=== PATIENT | female | born 2000 | race Asian ===

== ENCOUNTER → 2022-03-01 09:53 | Outpatient (CLI) | payer OTHER, SELFPAY ==
[2022-03-01 11:44] LABS: Add Manual Diff / Slide Review NO; Basophils Absolute Auto 100 /uL (0-100); Basophils Percent Auto 0.5 % (0-2); Eosinophils Absolute Auto 100 /uL (0-450); Eosinophils Percent Auto 1.3 % (2-4); Hematocrit 38.7 % (36-46); Lymphocytes Absolute Auto 2400 /uL (1100-4500); Lymphocytes Percent Auto 21.6 % (25-40); Mean Corpuscular HGB Conc 33.5 % (30-36); Mean Corpuscular Hemoglobin 33.8 PG (26-34); Mean Corpuscular Volume 100.9 fL (80-100); Monocytes Absolute Auto 600 /uL (0-900); Monocytes Percent Auto 5.4 % (3-14); Neutrophils Absolute Auto 8000 /uL (1500-7000); Neutrophils Percent Auto 71.2 % (50-75); Platelet Count 264 X10^3/uL (150-400); Red Blood Cell Count 3.83 X10^6/uL (4.0-5.2); Red Cell Distribution Width 12.9 % (11.6-14.8); White Blood Cell Count 11.2 X10^3/uL (4.5-11.0)
[2022-03-01 12:07] LABS: Appearance Urine UA CLEAR; Bilirubin Urine UA NEGATIVE (NEGATIVE); Color Urine UA YELLOW; Glucose Urine UA NEGATIVE (Negative); Ketones Urine UA NEGATIVE (NEGATIVE); Leukocyte Esterase Urine UA TRACE (NEGATIVE); Nitrite Urine UA NEGATIVE (Negative); Occult Blood Urine UA NEGATIVE (Negative); Protein Urine UA NEGATIVE (Negative); Specific Gravity Urine UA <=1.005 (1.000-1.035); Urobilinogen Urine UA 0.2 E.U./dL (0.2)
[2022-03-01 12:43] LABS: Bacteria Urine Few (2-10); RBC Urine None Seen (0-5/HPF); WBC Urine 0-1/HPF (0-5/HPF)
[2022-03-01 13:01] LABS: Hepatitis B Surface Antigen NEGATIVE s/c (NEGATIVE); Rubella Antibody IgG 9.1 IU/mL (>15)
[2022-03-01 13:20] LABS: HIV 1 & 2 Ab/Ag 4th Gen Combo NEGATIVE (NEGATIVE)
[2022-03-01 16:11] LABS: Hep C Virus Ab w/Reflex Quant NEGATIVE s/c (NEGATIVE)
[2022-03-02 07:56] LABS: RPR Screen Non Reactive (Non Reactive); Varicella IgG Antibody 347 index (Immune >165)
== END ==
PROVIDERS: Referring Provider Obstetrics & Gynecology; Visit Provider Obstetrics & Gynecology
DX: Z34.01 Encounter for supervision of normal first pregnancy, first trimester (principal)
CPT/HCPCS: 36415; 80055; 81003; 81015; 86787; 86803; 86850; 86900; 86901; 87086; 87389

== ENCOUNTER → 2022-04-03 14:16 | Outpatient (CLI) | payer OTHER, SELFPAY ==
[2022-04-05 22:07] LABS: AFP, Serum 62.1 ng/mL (.); Estriol, Free 2.15 ng/mL (.); Inhibin A, Dimeric 163.68 pg/mL (.); Inhibin A, MoM 0.85 (.); Maternal Ethnicity Other (.); Maternal Weight 108 lbs (.); Number of Fetuses No (.); OSBR Risk 1 IN 6704 (.); Results Report (.); Test Results *Screen Negative* (.); hCG, MoM 1.07 (.); hCG, Serum 46166 mIU/mL (.)
== END ==
PROVIDERS: Referring Provider Obstetrics & Gynecology; Visit Provider Obstetrics & Gynecology
DX: Z34.02 Encounter for supervision of normal first pregnancy, second trimester (principal); Z3A.17 17 weeks gestation of pregnancy
CPT/HCPCS: 36415; 82105; 82677; 84702; 86336

== ENCOUNTER → 2022-04-24 08:56 | Outpatient (CLI) | payer OTHER, SELFPAY ==
--- NOTE | 2022-04-24 08:58 | DI.US.S_ITS ---
PROCEDURE: US OB >= 14 WEEKS FETUS INDICATIONS: ANATOMY OUTSIDE/PRIOR DATING DATA: Last menstrual period (LMP): 12/03/2021. LMP-based estimated date of delivery (ESTELLA): 09/09/2022. First dating scan (date and location): Unknown. TECHNIQUE: Real-time scanning was performed of the fetus, with image documentation and biometric measurements. Endovaginal scanning: Now COMPARISON: [facility], , OB >= 14 WEEKS FETUS, 04/03/2022, 14:10. FINDINGS: General: A single living intrauterine gestation is present. Presentation: Variable Placenta: Placental position is posterior, without previa. Amniotic fluid index: 18 cm, normal range is 5-24 cm. Single deepest vertical pocket is 6.2 cm. heart rate: 133 beats per minute. Maternal cervical canal: 5.2 cm long. Normal lower limit is 2.5 cm. biometrics: Biparietal diameter: 4.7 cm, 20 weeks 2 days Head circumference: 17.6 cm, 20 weeks 1 day Abdominal circumference: 15 cm, 20 weeks 2 days Femur length: 3.3 cm, 20 weeks 3 days Clinically estimated gestational age: 20 weeks 2 days Composite gestational age from present scan: 20 weeks 2 days Estimated weight and percentile: 345 g, 46th percentile Anatomic survey: Neuro: Ventricles are non-dilated at less than 10 mm. Cisterna magna is normal at 3-11 mm. Cerebellum is normal in size and morphology. Nuchal skin fold: Normal at less than 6 mm between 14-21 weeks gestational age. Face: Nose and lips, facial profile are normal. Spine: No evidence for spina bifida. Heart: 4-chambered heart is present, with normal ventricular outflow tracts. Echogenic focus within the left ventricle. Diaphragm: Diaphragm is intact. Stomach: Left-sided stomach is present. Kidneys: No hydronephrosis. Normal is less than 5 mm in 2nd trimester, less than 7 mm in 3rd trimester. Cord: 3-vessel cord has orthotopic insertion. Bladder: Normal in size. Extremities: All 4 extremities identified. IMPRESSION: 1. Isolated intracardiac focus within the left ventricle. Consider aneuploidy screening with cell free DNA. Otherwise, unremarkable anatomy scan. We strive to produce accurate, complete, and clear reports of imaging services. To assist us in improving patient care, this report was composed using standard report templates and voice recognition software. Therefore, it may contain abnormal punctuation, insertions and/or omissions. Occasional wrong-word or sound-alike substitutions may occur. Though we review the report and make efforts to correct it, we do recommend that the report be read carefully in proper context to recognize any text inaccuracies. Dictated by: Don Ramirez M.D. on 04/24/2022 at 13:44 Approved by: Don Ramirez M.D. on 04/24/2022 at 13:51
== END ==
PROVIDERS: Referring Provider Obstetrics & Gynecology; Visit Provider Obstetrics & Gynecology
DX: Z3A.20 20 weeks gestation of pregnancy; Z34.02 Encounter for supervision of normal first pregnancy, second trimester
CPT/HCPCS: 76811

== ENCOUNTER → 2022-06-03 14:33 | Outpatient (CLI) | payer OTHER, SELFPAY ==
[2022-06-03 16:17] LABS: Hematocrit 33.7 % (36-46); Hemoglobin 11.7 g/dL (12.0-16.0)
[2022-06-03 16:36] LABS: GTT (PREG) 1 Hour PP 50gm Dose 121 mg/dL (76-139)
== END ==
PROVIDERS: Referring Provider Obstetrics & Gynecology; Visit Provider Obstetrics & Gynecology
DX: Z34.02 Encounter for supervision of normal first pregnancy, second trimester; Z3A.26 26 weeks gestation of pregnancy
CPT/HCPCS: 36415; 82950; 85014; 85018

== ENCOUNTER → 2022-08-21 13:46 | Outpatient (CLI) | payer OTHER, SELFPAY ==
[2022-08-22 11:25] LABS: Strep Grp B PCR POS for Grp B Strep
== END ==
PROVIDERS: Visit Provider Obstetrics & Gynecology
DX: Z34.03 Encounter for supervision of normal first pregnancy, third trimester (principal); Z3A.37 37 weeks gestation of pregnancy
CPT/HCPCS: 87653

== ENCOUNTER 2022-08-28 16:09 | Outpatient (CLI) | payer OTHER, SELFPAY ==
[2022-08-28 17:09] LABS: Add Manual Diff / Slide Review NO; Basophils Absolute Auto 100 /uL (0-100); Basophils Percent Auto 0.9 % (0-2); Eosinophils Absolute Auto 200 /uL (0-450); Eosinophils Percent Auto 1.4 % (2-4); Hematocrit 37.9 % (36-46); Hemoglobin 12.8 g/dL (12.0-16.0); Lymphocytes Absolute Auto 2200 /uL (1100-4500); Lymphocytes Percent Auto 19.7 % (25-40); Mean Corpuscular HGB Conc 33.6 % (30-36); Mean Corpuscular Hemoglobin 33.7 PG (26-34); Mean Corpuscular Volume 100.3 fL (80-100); Monocytes Absolute Auto 900 /uL (0-900); Monocytes Percent Auto 8.4 % (3-14); Neutrophils Absolute Auto 7800 /uL (1500-7000); Neutrophils Percent Auto 69.6 % (50-75); Platelet Count 331 X10^3/uL (150-400); Red Blood Cell Count 3.78 X10^6/uL (4.0-5.2); Red Cell Distribution Width 14.5 % (11.6-14.8); White Blood Cell Count 11.2 X10^3/uL (4.5-11.0)
[2022-08-28 17:23] LABS: Aspartate Aminotransferase 23 IU/L (14-36); BUN Creatinine Ratio 18.2 (6-22); Blood Urea Nitrogen 8 mg/dL (7-17); Estimated Glomerular Filt Rate > 60 mL/min (>60); Uric Acid 2.5 mg/dL (2.5-6.2)
== END 2022-08-28 17:05 | disposition home or self-care (01) ==
LOC: LABOR 17:01 → OB 09-02 07:34
PROVIDERS: Referring Provider Obstetrics & Gynecology; Visit Provider Obstetrics & Gynecology
DX: O16.3 Unspecified maternal hypertension, third trimester (principal); Z3A.38 38 weeks gestation of pregnancy
CPT/HCPCS: 59025; 84450; 84550; 85025; G0378; G0379

== ENCOUNTER 2022-09-05 01:49 | Inpatient (IN) | payer OTHER, SELFPAY ==
[2022-09-05] MEDS: LACTATED RINGERS 1,000 ML 100 ML IV ×2 (02:46→09:22)
[2022-09-05 03:01] LABS: Add Manual Diff / Slide Review NO; Basophils Absolute Auto 100 /uL (0-100); Basophils Percent Auto 0.5 % (0-2); Eosinophils Absolute Auto 200 /uL (0-450); Eosinophils Percent Auto 1.1 % (2-4); Hematocrit 39.8 % (36-46); Hemoglobin 13.5 g/dL (12.0-16.0); Lymphocytes Absolute Auto 2800 /uL (1100-4500); Lymphocytes Percent Auto 18.3 % (25-40); Monocytes Absolute Auto 1100 /uL (0-900); Monocytes Percent Auto 7.1 % (3-14); Neutrophils Absolute Auto 11300 /uL (1500-7000); Platelet Count 326 X10^3/uL (150-400); Red Blood Cell Count 3.98 X10^6/uL (4.0-5.2); Red Cell Distribution Width 14.9 % (11.6-14.8); White Blood Cell Count 15.5 X10^3/uL (4.5-11.0)
[2022-09-05 03:26] LABS: Aspartate Aminotransferase 21 IU/L (14-36); BUN Creatinine Ratio 17.5 (6-22); Blood Urea Nitrogen 7 mg/dL (7-17); Estimated Glomerular Filt Rate > 60 mL/min (>60)
[2022-09-05 04:16] VITALS: BP 119/71
[2022-09-05] MEDS: AMPICILLIN 2,000 MG in SODIUM CHLORIDE 0.9% 100 ML 200 MG IV (05:02)
--- NOTE | 2022-09-05 05:53 | P.HPOB_ITS ---
OB HPI Date/Time Date of admission: 09/05/22 Date Patient Seen: 09/05/22 Time Patient Seen: 05:53 History of Present Condition Chief complaint: Labor ESTELLA Calculator Estimated Delivery Date Method Current WG Current Estimate 09/09/22 LMP (Certain) 39w 3d Other Estimates 09/09/22 Ultrasound #1 39w 3d Estimated Gestational Age (weeks): 39+3 : 1 Para: 0 care: good care, initiated at week # (9), number of visits (12) and pounds weight gain (28) Dating criteria OB: LMP confirmed by 1st trimester US Ultrasounds: normal 1st trimester US and normal mid trimester US Obstetrical complications: none Medical complications OB: none Indications Indication for induction OB: gestational HTN/pre-eclampsia Preadmission Labs Last OB Lab Results: Blood Type B Positive 09/05/22 02:30 Antibody Screen Negative 09/05/22 02:30 Hematocrit 39.8 % (36-46) 09/05/22 02:30 Hemoglobin 13.5 g/dL (12.0-16.0) 09/05/22 02:30 Hepatitis B Surface Antigen Negative s/c (NEGATIVE) 03/01/22 10 :01 Hepatitis C Antibody Negative s/c (NEGATIVE) 03/01/22 10:01 Rubella Antibody 9.1 IU/mL (>15) L 03/01/22 10:01 Varicella-Zoster IgG Antibody 347 index (Immune >165) 03/01/22 10:01 Glucose 1 Hour 121 mg/dL (76-139) 06/03/22 14:36 Group B Streptococcus (PCR) Pos for grp b strep H 08/21/22 13:4 6 -: Chlamydia screen: negative, Gonorrhea screen: negative and Urine: negative -: PAP smear: Normal Genetic Screens: Quad screen: Normal External Labs -: Urine: negative Evaluation Evaluation Baseline heart rate: 135 Variability: Moderate (11-25) monitor accelerations: Present Monitor Decelerations: Early and Variable Contraction Frequency (minutes): 4 Uterine Contraction Intensity: Strong/Firm Dilation (cm): 7 Effacement (%): 100 station: 0 Position of cervix: anterior Consistency: soft PFSH Medical History (Updated 09/04/22 @ 09:11 by Rosario Nogueira MD) Seasonal allergies Surgical History (Updated 11/02/22 @ 08:48 by Martha Wise RN) No pertinent past surgical history Family History (Updated 01/23/22 @ 22:09 by Iliana Schultz) Mother Diabetes mellitus Hypertension History of multiple miscarriages Hyperlipidemia Father Hypertension Diabetes mellitus Liver cancer Grandmother Kidney failure Hyperlipidemia Hypertension Grandfather Kidney failure Social History marital status: number of children: 0 household members: spouse lives independently: Yes [facility]) pets and animals: Yes (1 dog, aware of toxo precautions) education level: high school occupational status: employed 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; 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 ) special brittni needs: No travel history: recent (domestic only) seatbelt use: always water heater temp set < 120 deg: Yes working smoke detector in home: Yes fire extinguisher in home: Yes carbon monox detector in home: Yes firearms in home: Yes firearms unloaded and locked: Yes do you feel safe at home: Yes Smoking Status: Never smoker second hand exposure: No alcohol intake: former (0-1/week prior to ) substance use type: does not use during the past year weight has: remained stable well-balanced diet: daily or most days daily servings fruits/ve-4 caffeine: Yes (aware of 200mg limit) Type(s) of exercise: yoga Meds Home Medications and Allergies Home Medications Medication Instructions Recorded Confirmed Type omega-3 fatty acids-fish oil 360 1 cap PO DAILY 01/16/22 09/04/22 History mg-1,200 mg capsule (Fish Oil) prenat.vits,chase,ror-[id number] 1 tab PO DAILY 01/16/22 09/04/22 History Allergies Allergy/AdvReac Type Severity Reaction Status Date / Time No Known Drug Allergies Allergy Unverified 09/04/22 08:12 OB Exam Narrative Exam Narrative: Generally: Patient standing at side of bed, uncomfortable with contractions Lungs: Clear to auscultation bilaterally Cardiovascular: Regular rate and rhythm Fundal height: 38 cm Estimated weight: 7 lb Extremities: No edema Objective Labs 09/05/22 02:30 09/05/22 03:04 Labs: Laboratory Results - last 24 hr 09/05/22 09/05/22 09/05/22 02:30 02:30 03:04 WBC 15.5 H RBC 3.98 L Hgb 13.5 Hct 39.8 MCV 100.0 MCH 34.0 MCHC 34.0 RDW 14.9 H Plt Count 326 Neut % (Auto) 73.0 Lymph % (Auto) 18.3 L [place] % (Auto) 7.1 Eos % (Auto) 1.1 L Baso % (Auto) 0.5 Neut # (Auto) 83614 H Lymph # (Auto) 2800 [place] # (Auto) 1100 H Eos # (Auto) 200 Baso # (Auto) 100 BUN 7 Creatinine 0.40 L Estimated GFR > 60 BUN/Creatinine Ratio 17.5 Uric Acid 3.0 AST 21 Blood Type B Positive Antibody Screen Negative Assessment and Plan Assessment and Plan Assessment and Plan narrative: Assessment: 22-year-old 1 para 0 at 39-,3/7 weeks gestation in active labor Desires epidural GBS positive Plan: Fentanyl until anesthesia available Expectant management to spontaneous vaginal delivery GBS prophylaxis Time Spent with Patient Total time spent with greater than 50% in coordination of care (as documented) at patient's floor/unit and/or counseling patient:: 15-24 minutes
[2022-09-05] MEDS: fentaNYL 100 MCG/2 ML INJ 50 MCG IV (05:55)
--- NOTE | 2022-09-05 08:06 | PM.OBPNLAB ---
Date/Time Date Patient Seen: 09/05/22 Time Patient Seen: 08:06 Pain Control Pain control: epidural Pelvic Exam Dilation (cm): 8 Effacement (%): 100 station: 0 Amniotic membrane status: Bulging Contractions Contractions on admission: regular Monitor mode: External Contraction frequency (min): 3 Contraction duration (min): 1 Contraction pattern: Regular Contraction intensity: Strong/Firm Status status: Category ll Heart Rate Baseline: 135 Monitor Accelerations: Present Monitor Decelerations: Variable Monitor Variability: Moderate Assessment and Plan Assessment: active labor Comments: Plan: Artificial rupture of membranes with copious clear amniotic fluid scalp electrode placed due to noncontinuous tracing Position changes
[2022-09-05] MEDS: AMPICILLIN 1,000 MG in SODIUM CHLORIDE 0.9% 100 ML 200 MG IV (09:21)
--- NOTE | 2022-09-05 12:16 | PM.OBPNLAB ---
Date/Time Date Patient Seen: 09/05/22 Time Patient Seen: 12:17 Pain Control Pain control: epidural Pelvic Exam Dilation (cm): 10 Effacement (%): 100 station: 0 Amniotic membrane status: Ruptured Contractions Monitor mode: External Contraction frequency (min): 5 Contraction duration (min): 1 Contraction pattern: Regular Contraction intensity: Strong/Firm Status status: Category ll Heart Rate Baseline: 140 Monitor Accelerations: Present Monitor Decelerations: Early and Variable (Deep, with pushing) Monitor Variability: Moderate Assessment and Plan Assessment: active labor Comments: Assessment: 22-year-old 1 para 0 at 39-,3/7 weeks gestation with intolerance of second stage of labor Recurrent, deep variable decelerations with pushing Not a candidate for an operative delivery Plan: Primary low-transverse section The risks, benefits, and alternatives to the procedure were explained to the patient. The risks including bleeding, infection, injury to the bowel, bladder, or ureters. She understands these risks and agrees to proceed. A full par Q was held and consent form was signed.
--- NOTE | 2022-09-05 12:18 | PM.PREOP ---
Pre-operative Note COVID-19 Criteria for continued procedure: Non-surgical alternatives not available or appropriate per current SOC Interval Note History & Physical reviewed/Exam performed by Physician: Yes Changes to H&P: No H&P completed within 30 days and has changed as indicated here:: 08/05/22
[2022-09-05] MEDS: CEFAZOLIN 2 GM/100 ML PREMIX 100 ML IV (12:34)
[2022-09-05] MEDS: AZITHROMYCIN 500 MG in DEXTROSE 5% IN WATER 250 ML 250 MG IV (12:34)
--- NOTE | 2022-09-05 12:59 | SUR.OPER ---
Supine on padded OR bed, head on pillow, arms secured on padded arm boards at <90 degrees abduction, legs uncrossed, safety belt at thigh, tape over blanket over lower legs.
[2022-09-05 13:39] VITALS: BP 90/30; PULSE 87; RESP 20; TEMP 36.3; O2SAT 97
[2022-09-05 13:45] VITALS: BP 70/26; PULSE 111; RESP 14; O2SAT 99
--- NOTE | 2022-09-05 13:47 | PM.OBCS.1 ---
Operative Date/Time/Diagnoses Date of procedure: 09/05/22 Time of procedure: 13:47 Pre-op diagnosis: intolerance of labor Non reassuring FHR tracing Post-op diagnosis: same Procedure & Clinicians Procedure: Primary low-transverse section Same procedure as scheduled: Yes Indications: Nonreassuring heart rate tracing Surgeon: Rosario Nogueira Click Yes if Unassisted: No Eye Physician: Sammie Morrow Reason for Eye Physician: The delinquent tax collection assistant was necessary to retract upon entry into the abdomen and uterus. She assisted with delivery of the with fundal pressure. She assisted with closure with retraction, clipping of suture, and closure of the contralateral fascia. Anesthesia Type: Epidural (with Duramorph) Operative Notes Findings: Live male infant in the direct occiput posterior presentation Normal uterus, tubes, and ovaries Cord pH 7.29 Closure Type: primary Specimen(s): cord blood, cord pH and placenta Intraoperative meds administered: Duramorph, Ketorolac and Pitocin Applied: Catheter (to continuous drainage) Estimated Blood Loss (mL): 350 Blood products transfused: none Procedure in detail: Informed consent was obtained. The patient was taken to the operating room where she was then placed in the dorsal supine position with a leftward tilt. The 's head was elevated with a sterile glove from below. heart tones were found to be less than 100. She was prepped and draped in the usual sterile fashion. A timeout was performed. A Pfannenstiel skin incision was made 2 fingerbreadths above the pubic symphysis and carried through to the underlying layer fascia. The fascia was nicked in the midline, and the incision extended bilaterally with the Navarrete scissors. The superior aspect of the fascial incision was grasped with a Cecile clamps, elevated, and the underlying rectus muscles dissected off sharply and bluntly. Attention was then turned to the inferior aspect of this incision which in a similar fashion was grasped with a Cecile clamps, elevated, and the underlying rectus muscles dissected off sharply and bluntly. The rectus muscles were in the midline. The peritoneum was identified, grasped between 2 hemostats, and entered sharply with the Metzenbaum scissors. This incision was extended superiorly and inferiorly with good visualization of the bladder. The bladder blade was inserted. The vesicouterine peritoneum was identified, grasped with the pickup, and entered sharply with the Metzenbaum scissors. This incision was extended bilaterally, and the bladder flap was created digitally. The bladder blade was reinserted. The lower uterine segment was incised in a transverse fashion with the scalpel. Upon entering the amniotic sac there was a small amount of clear amniotic fluid. The was found to be in the direct occiput posterior presentation. The head was delivered without difficulty. The nose and mouth were suctioned with bulb suction. The remainder of the body delivered without difficulty. The was wrapped in warm blankets. The cord was double clamped and cut after 1 minute. The was handed off to waiting RN and RT. a piece of cord for cord pH was obtained. Cord bloods were obtained. The placenta was delivered by expression. The uterus was cleared of all clots and debris. The uterine incision was repaired with #1 chromic in a running interlocking fashion, and a second layer the same suture was used for an imbricating layer. Hemostasis was achieved. The tubes and ovaries were examined and were found to be normal. The gutters were cleared of all clots and debris. The bladder flap was reapproximated using 2-0 Vicryl in a running fashion. The parietal peritoneum was closed using 2-0 Vicryl in a running fashion. The fascia was reapproximated using 0 Vicryl in a running fashion. The subcutaneous layer was copiously irrigated with warm normal saline. 5 simple interrupted sutures of 3-0 Vicryl were placed to reapproximate the subcutaneous layer. The skin was closed with 4-0 Monocryl in a subcuticular fashion. Steri-Strips were placed. An Aquacel dressing was placed. The uterus was expressed of a small amount of old blood. Sponge, lap, and instrument counts were correct x-2. The patient tolerated the procedure well, and was taken to PACU in stable condition. Complications: none [place] Baby 1: Infant Gender: Male Presentation: vertex Position: Occiput Posterior Placental Delivery Description: Expressed Cord Vessel Description: 3 Vessels and Clamped/Cut (after one minute) score (1 min): 9 score (5 min): 9 weight: 6 lb 9 oz Post-operative Condition: stable Disposition: PACU Aftercare: routine postop
[2022-09-05 13:50] VITALS: BP 95/34; PULSE 99; RESP 14; O2SAT 98
[2022-09-05 13:55] VITALS: BP 104/37; PULSE 100; RESP 12; O2SAT 100
[2022-09-05] MEDS: OXYTOCIN 10 UNIT/ML VIAL IM (14:14)
[2022-09-05] MEDS: ACETAMINOPHEN 325 MG TABLET 650 MG PO ×2 (17:31→23:41)
--- NOTE | 2022-09-05 17:32 | PM.AN.REGBLK ---
Regional Block Pre-procedure Labs: Hct 39.8 % (36-46) 09/05/22 02:30 Plt Count 326 X10^3/uL (150-400) 09/05/22 02:30 Medications: Current Medications Generic Name Dose Route Start Last Admin Trade Name Rachelle PRN Reason Stop Dose Admin Acetaminophen 650 mg 09/05/22 14:13 Acetaminophen 325 Mg Tablet PO Q6H ANGELI Carboprost Tromethamine 250 mcg 09/05/22 14:13 Carboprost 250 Mcg/Ml Ampul IM Q90M PRN Bleeding Docusate Sodium 100 mg 09/06/22 09:00 Docusate 100 Mg Capsule PO DAILY ANGELI Emollient Ointment 1 applic 09/05/22 14:13 Lanolin Oint 7 Gm TOP PRN PRN Oxytocin/Lactated Ringer's 30 unit in 500 mls @ 200 mls/hr 09/05/22 14:13 Oxytocin Premix IV NOW PRN Bleeding Protocol Tranexamic Acid 1,000 mg/ 100 mls @ 200 mls/hr 09/05/22 14:13 Sodium Chloride IV NOW PRN Bleeding Ibuprofen 600 mg 09/06/22 13:45 Ibuprofen 600 Mg Tablet PO Q6H [facility] Ketorolac Tromethamine 30 mg 09/05/22 14:13 Ketorolac 30 Mg/Ml Vial IV 09/06/22 08:14 Q6H ANGELI Methylergonovine Maleate 0.2 mg 09/05/22 14:13 Methylergonovine 0.2 Mg/Ml Vial IM NOW PRN Bleeding Methylergonovine Maleate 0.2 mg 09/05/22 14:13 Methylergonovine 0.2 Mg Tablet PO Q6H PRN Bleeding Misoprostol 400 mcg 09/05/22 14:13 Misoprostol 200 Mcg Tablet SL NOW PRN Bleeding Misoprostol 800 mcg 09/05/22 14:13 Misoprostol [address] NOW PRN Bleeding Naloxone HCl 0.2 mg 09/05/22 14:13 Naloxone 0.4 Mg/Ml Vial IV Q2MIN PRN Opiate Reversal Ondansetron HCl 4 mg 09/05/22 14:13 Ondansetron 4 Mg/2 Ml Inj IV Q6H PRN Nausea And Vomiting Oxytocin 10 unit 09/05/22 14:13 Oxytocin 10 Unit/Ml Vial IM NOW PRN Bleeding Vit/Calcium/Iron/Folic Ac 1 tab 09/06/22 09:00 Vit,Calc/Iron/Folic 1 Tablet PO DAILY ANGELI Rho Immune Globulin 1,500 unit 09/05/22 14:13 Rho(D) Immune Globulin 1,500 Unit Syringe IM NOW PRN Mom Rh neg, Infant Rh pos Allergies: Allergies Allergy/AdvReac Type Severity Reaction Status Date / Time No Known Drug Allergies Allergy Unverified 09/04/22 08:12
[2022-09-05] MEDS: KETOROLAC 30 MG/ML VIAL IV (20:10)
[2022-09-05] MEDS: LANOLIN OINT 7 GM 1 APPLIC TOP (20:16)
[2022-09-06] MEDS: KETOROLAC 30 MG/ML VIAL IV ×2 (02:06→08:58)
[2022-09-06] MEDS: ACETAMINOPHEN 325 MG TABLET 650 MG PO ×3 (05:23→23:17)
[2022-09-06 06:53] LABS: Add Manual Diff / Slide Review NO; Basophils Absolute Auto 100 /uL (0-100); Basophils Percent Auto 0.3 % (0-2); Eosinophils Absolute Auto 0 /uL (0-450); Eosinophils Percent Auto 0.2 % (2-4); Hematocrit 33.4 % (36-46); Lymphocytes Absolute Auto 2300 /uL (1100-4500); Lymphocytes Percent Auto 12.2 % (25-40); Mean Corpuscular HGB Conc 32.9 % (30-36); Mean Corpuscular Hemoglobin 33.5 PG (26-34); Mean Corpuscular Volume 101.9 fL (80-100); Monocytes Absolute Auto 1500 /uL (0-900); Monocytes Percent Auto 8.2 % (3-14); Neutrophils Absolute Auto 14800 /uL (1500-7000); Neutrophils Percent Auto 79.1 % (50-75); Platelet Count 267 X10^3/uL (150-400); Red Blood Cell Count 3.28 X10^6/uL (4.0-5.2); Red Cell Distribution Width 14.9 % (11.6-14.8); White Blood Cell Count 18.8 X10^3/uL (4.5-11.0)
[2022-09-06] MEDS: DOCUSATE 100 MG CAPSULE PO (08:57)
[2022-09-06] MEDS: PRENATAL VIT,CALC/IRON/FOLIC 1 TABLET 1 TAB PO (08:58)
--- NOTE | 2022-09-06 16:09 | P.PNOB_ITS ---
Subjective - OB Subjective Patient comments: no complaints, pain well controlled and tolerating diet baby status: doing well feeding status: exclusively breast feeding Date Patient Seen: 09/06/22 Time Patient Seen: 09:15 Interval history: Postop day # 1 status post emergent primary low-transverse section due to intolerance of labor The catheter is out and the patient has voided. Good pain management. No nausea or vomiting. going well. Exam Vital Signs (past 8 hours): Oxygen Delivery Method Room Air Narrative Exam Narrative: Generally: Patient is sitting up in bed, no acute distress Lungs: Clear to auscultation bilaterally Cardiovascular: Regular rate and rhythm Fundus: Firm at U Incision: Clean dry and intact with Aquacel dressing Extremities: Trace edema, negative Hom[place] Objective Labs 09/06/22 06:25 09/05/22 03:04 Labs: Laboratory Results - last 24 hr 09/06/22 06:25 WBC 18.8 H RBC 3.28 L Hgb 11.0 L Hct 33.4 L MCV 101.9 H MCH 33.5 MCHC 32.9 RDW 14.9 H Plt Count 267 Neut % (Auto) 79.1 H Lymph % (Auto) 12.2 L [place] % (Auto) 8.2 Eos % (Auto) 0.2 L Baso % (Auto) 0.3 Neut # (Auto) 31584 H Lymph # (Auto) 2300 [place] # (Auto) 1500 H Eos # (Auto) 0 Baso # (Auto) 100 Assessment & Plan Plan day: 1 plan OB: routine postop care Time Spent With Patient Time: Total time spent is greater than 50% in coordination of care (as documented) at patient's floor/unit and/or counseling patient: Time with patient: 15-24 minutes
[2022-09-06] MEDS: IBUPROFEN 600 MG TABLET PO ×2 (16:53→23:12)
[2022-09-06] MEDS: OXYCODONE/ACETAMINOPHEN 5/325 TABLET 1 TAB PO (20:21)
[2022-09-07] MEDS: ACETAMINOPHEN 325 MG TABLET 650 MG PO ×2 (06:28→13:29)
[2022-09-07] MEDS: IBUPROFEN 600 MG TABLET PO ×2 (06:29→13:29)
[2022-09-07] MEDS: DOCUSATE 100 MG CAPSULE PO (09:45)
[2022-09-07] MEDS: PRENATAL VIT,CALC/IRON/FOLIC 1 TABLET 1 TAB PO (09:45)
--- NOTE | 2022-09-07 12:11 | P.DS_ITS ---
Discharge Providers Provider Date of admission: 09/05/22 01:49 Discharge Date: 09/07/22 Primary care physician: Kacey JUAREZ Provider Consults: 09/05/22 02:13 Consult to Anesthesiology Urgent Comment: Consulting Provider: Anesthesiologist Reason for consultation: Epidural Has provider been notified: No 09/05/22 14:13 Consult to [employer] Engraver Hand Routine Comment: Discharge provider: Rosario Nogueira MD Summary Hospital Course Date Patient Seen: 09/07/22 Time Patient Seen: 12:13 Diagnoses: 39+ 3 weeks' gestation intolerance of labor Short stature Primary low-transverse section Direct occiput posterior presentation Hospital Course: Patient is a 22-year-old 1 para 1 who presented on September 05, 2022 in the middle of the night in active labor. She was scheduled for an induction of labor at 7:00 a.m. that morning. She received an epidural for pain management. She progressed to complete dilation. With pushing baby was having deep variable decelerations. Patient was not a candidate for an operative delivery. A decision was made to proceed with a primary low-transverse section. Baby was found to be in the direct occiput posterior presentation. Her postoperative course was unremarkable. Her [place] catheter came out on September 06, 2022 and she was able to void without the catheter. She is tolerating a diet. No nausea or vomiting. going well. Pain is well controlled. Peripartum Data Infant Delivery Method: Emergency Section Procedures: Epidural analgesia Primary low-transverse section complications: none 1: Gender: Male Status at Discharge Cognitive/behavioral status at discharge: oriented Functional status at discharge: independent ambulation Overall status at discharge: patient is progressing back to baseline Time Spent with Patient Time attestation: Total time spent providing and/or coordinating discharge services: Time spent: Less than 30 minutes Objective Labs 09/06/22 06:25 09/05/22 03:04 Exam Vital Signs (past 8 hours): Oxygen Delivery Method Room Air Narrative Exam Narrative: Generally: Patient is standing in room, no acute distress Lungs: Clear to auscultation bilaterally Cardiovascular: Regular rate and rhythm Fundus: Firm at U Incision: Clean dry and intact with Aquacel dressing Extremities: Trace edema Discharge Plan Discharge Plan Patient Disposition: Home Provider Discharge Comment: Call with fever, chills, redness or drainage around the incision, or bleeding vaginally more than a pad in an hour Ibuprofen 600 mg every 6 hours as needed Tylenol 650 mg every 6 hours as needed Stool softener until bowels returned to normal Push oral fluids Discharge orders & Medications Prescriptions: New oxycodone 5 mg tablet 5 mg PO Q4H PRN (Reason: pain) Qty: 14 0RF Continued prenat.vits,chase,[id number] Tablet 1 tab PO DAILY omega-3 fatty acids-fish oil [Fish Oil] 360-1,200 mg capsule 1 cap PO DAILY Follow up/Referrals: Rosario Nogueira MD [Physician] - (My office will call on Friday to schedule Aquacel removal) Diet/Activity/Treatments Diet: Regular Activity: No heavy lifting Nothing in the vagina for 6 weeks Skin/Wound/Dressing Care Report to your healthcare provider any signs of infection, such as:: chills, fever, increased pain, unusual drainage and unusual redness Visit Report/Discharge Packet Instructions: DI for , DI for Prescription Opioid Use Stand Alone Forms: Patient Portal/API, Stroke Signs & Symptoms Discharge Data Primary Care Provider: Kacey Fairchild
[2022-09-07] MEDS: MEASLES,MUMPS,RUBELLA VACC/PF 0.5 ML VIAL SUBCUT (13:39)
== END 2022-09-07 14:45 | disposition home or self-care (01) | DRG 788 ==
PROVIDERS: Admitting Provider Obstetrics & Gynecology; Referring Provider Obstetrics & Gynecology; Visit Provider Obstetrics & Gynecology
PROC: 10D00Z1 Extraction of Products of Conception, Low, Open Approach (ICD-10-PCS; CPT 59514; principal; 2022-09-05 12:45)
DX: O76 Abnormality in fetal heart rate and rhythm complicating labor and delivery (principal); Z3A.39 39 weeks gestation of pregnancy; Z37.0 Single live birth; O99.824 Streptococcus B carrier state complicating childbirth; O13.4 Gestational [pregnancy-induced] hypertension without significant proteinuria, complicating childbirth
CPT/HCPCS: 36415; 59050; 59510; 59514; 84450; 84550; 85025; 86850; 86900; 86901; G0379; J0290; J0690; J1885; J2274; J2405; J2590; J3010